=== PATIENT | male | born 1955 ===

== ENCOUNTER → 2019-02-07 | Outpatient (CLI) | payer BC ==
[~2019-02-07] MED LIST: ALLERGY RELIE15.8 ML NS; Flomax0.4 MG PO; Ibuprofen Ib200 MG PO; LORA.5 PO; LOSA50 PO; Omeprazole20 M1 PO; ZOLP10 PO; ZYRTEC10 M2 PO
[2019-02-07 19:41] LABS: BASOPHILS ABSOLUTE AUTO 0.06 K/mm3 (0.00-0.23); BASOPHILS PERCENT AUTO 0 % (0-2); EOSINOPHILS PERCENT AUTO 2 % (0-6); Hematocrit 47.3 % (37.0-53.0); Hemoglobin 15.6 g/dL (13.5-17.5); IMMATURE GRAN ABSOLUTE AUTO 0.05 K/mm3 (0.00-0.10); IMMATURE GRAN PERCENT AUTO 0 % (0-1); LYMPHOCYTES ABSOLUTE AUTO 3.75 K/mm3 (0.84-5.20); LYMPHOCYTES PERCENT AUTO 26 % (21-46); MONOCYTES ABSOLUTE AUTO 1.25 K/mm3 (0.16-1.47); MONOCYTES PERCENT AUTO 9 % (4-13); Mean Corpuscular HGB 30.2 pg (26.0-34.0); Mean Corpuscular Volume 92 fL (80-100); Mean Platelet Volume 11.2 fL (9.1-12.4); NEUTROPHILS ABSOLUTE AUTO 9.12 K/mm3 (1.96-9.15); NEUTROPHILS PERCENT AUTO 63 % (41-73); Platelet Count 223 K/mm3 (150-400); Red Blood Cell Count 5.17 M/mm3 (4.30-5.90); White Blood Cell Count 14.53 K/mm3 (4.00-11.30)
[2019-02-08 10:51] LABS: Blood Urea Nitrogen 18 mg/dL (8-24); Creatinine, Blood 1.08 mg/dL (0.60-1.20); Glomerular Filtration Rate >60 (60-)
== END | disposition home or self-care (01) ==
LOC: LAB SHORT 18:58 → LAB 18:58
PROVIDERS: Emergency Medicine
DX: M54.9 Dorsalgia, unspecified (principal)
CPT/HCPCS: 82565; 84520; 85025

== ENCOUNTER 2021-04-17 12:50 | Day surgery (SDC) | payer MEDICARE ==
[~2021-04-17] VITALS: Ht 188 cm; Wt 118.4 kg
[~2021-04-17 12:50] MED LIST changes: +Acetaminophen650 M1 PO; +ESOM20 PO; +FINA5 PO; +ONDA4ODT MM
[2021-04-17] MEDS ORDERED: MULVITA PO (14:00)
[2021-04-17] MEDS ORDERED: ZINC15 PO (14:00)
[2021-04-17] MEDS ORDERED: MAGCIT300 PO (14:01)
--- NOTE | 2021-04-17 14:32 | NUR ---
Pre-Op teaching done. Pt verbalizes understan History, Chart, Medications and Allergies reviewed before start of procedure.Patient States Post-Procedure ride home has been arranged.
--- NOTE | 2021-04-17 14:34 | NUR ---
2 FAILED ATTEMPTS ON RIGHT FOREARM BY CYNTHIA
--- NOTE | 2021-04-17 14:55 | NUR ---
04/17/21 1455 RACHEAL CARPIO History, Chart, Medications and Allergies reviewed before start of procedure. Patient confirms NPO status and agrees with scheduled surgery. 3-LEAD EKG REVIEWED WITH PHYSICIAN PRIOR TO START OF PROCEDURE. MONITOR INTACT WITH CONTINUOUS PULSE OXIMETRY AND INTERMITTENT BP. PATIENT DETERMINED TO BE ASA APPROPRIATE FOR PROPOFOL SEDATION PRIOR TO START OF PROCEDURE BY DR. BOONE. O2 VIA POM INTACT THROUGHOUT SEDATION/PROCEDURE.
--- NOTE | 2021-04-17 15:47 | NUR ---
Patient up to Ambulate independently. Gait steady. Discharge instructions reviewed with patient. Patient verbalizes understanding. Copy given to patient to take home. History, Chart, Medications and Allergies reviewed before start of procedure.Patient States Post-Procedure ride home has been arranged. Discharged via wheelchair to private car for ride home.
== END 2021-04-17 16:04 | disposition home or self-care (01) ==
LOC: ORSCMMR 12:50 → ORD 14:15 → ORSCMMR 16:04
PROVIDERS: Surgery
PROC: 0DBK8ZX Excision of Ascending Colon, Via Natural or Artificial Opening Endoscopic, Diagnostic (ICD-10-PCS; principal; 2021-04-17 14:15)
PROC: 0DJ08ZZ Inspection of Upper Intestinal Tract, Via Natural or Artificial Opening Endoscopic (ICD-10-PCS; principal; 2021-04-17 14:15)
DX: Z12.11 Encounter for screening for malignant neoplasm of colon (principal); Z86.010 Personal history of colon polyps; R13.10 Dysphagia, unspecified; D12.2 Benign neoplasm of ascending colon; K21.9 Gastro-esophageal reflux disease without esophagitis; E66.9 Obesity, unspecified; Z68.30 Body mass index [BMI] 30.0-30.9, adult; I10 Essential (primary) hypertension; Z79.899 Other long term (current) drug therapy
CPT/HCPCS: 88305; J2704; J7120

== ENCOUNTER 2022-11-18 14:28 | Emergency (ER) | payer MEDICARE, OTHER ==
[~2022-11-18] VITALS: Ht 188 cm; Wt 122.5 kg
[~2022-11-18 14:28] MED LIST changes: +MAGCIT300 PO; +MULVITA PO; +PROM25 PO; +ZINC15 PO
[2022-11-18 15:39] LABS: BASOPHILS ABSOLUTE AUTO 0.05 K/mm3 (0.00-0.23); BASOPHILS PERCENT AUTO 0 % (0-2); EOSINOPHILS PERCENT AUTO 0 % (0-6); Hematocrit 45.2 % (37.0-53.0); Hemoglobin 15.4 g/dL (13.5-17.5); IMMATURE GRAN ABSOLUTE AUTO 0.03 K/mm3 (0.00-0.10); IMMATURE GRAN PERCENT AUTO 0 % (0-1); LYMPHOCYTES PERCENT AUTO 8 % (21-46); MONOCYTES PERCENT AUTO 3 % (4-13); Mean Corpuscular HGB 29.7 pg (26.0-34.0); Mean Corpuscular HGB Conc 34.1 g/dL (31.5-36.5); Mean Corpuscular Volume 87 fL (80-100); Mean Platelet Volume 11.5 fL (9.1-12.4); NEUTROPHILS ABSOLUTE AUTO 11.59 K/mm3 (1.96-9.15); NEUTROPHILS PERCENT AUTO 88 % (41-73); Platelet Count 223 K/mm3 (150-400); RDW Coefficient Variation 12.7 % (11.7-14.2); RDW Standard Deviation 40.5 fL (35.1-46.3); Red Blood Cell Count 5.18 M/mm3 (4.30-5.90); White Blood Cell Count 13.17 K/mm3 (4.00-11.30)
[2022-11-18 15:50] LABS: Albumin, Blood 4.1 g/dL (3.4-5.0); Albumin/Globulin Ratio 1.2 (0.8-1.8); Bilirubin, Total 0.5 mg/dL (0.1-1.0); Bun/Creatinine Ratio 25.3 (12.0-20.0); Calcium, Blood 9.2 mg/dL (8.5-10.1); Creatinine, Blood 0.83 mg/dL (0.60-1.20); Globulin, Blood 3.4 g/dL (2.2-4.0); Potassium, Blood 3.8 mmol/L (3.5-5.5); Total Protein, Blood 7.5 g/dL (6.4-8.2)
[2022-11-18] MEDS ORDERED: ONDA4ODT MM (19:32)
[2022-11-18] MEDS ORDERED: Norco 7.5-3251 EACH PO (19:32)
[2022-11-18 20:00] VITALS: BP 148/74
== END 2022-11-18 20:15 | disposition home or self-care (01) ==
LOC: ER 14:28
PROVIDERS: Physician Assistant
DX: R10.13 Epigastric pain (principal); Z79.899 Other long term (current) drug therapy; I10 Essential (primary) hypertension
CPT/HCPCS: 74177; 76705; 80053; 83690; 85025; 96374-59; 96375; 99284-25; A9270; J0780; J3010; J7030; Q9967

== ENCOUNTER → 2023-08-03 | Outpatient (CLI) | payer MEDICARE, OTHER ==
[~2023-08-03] MED LIST changes: +IBUP200 PO; +Norco 7.5-3251 EACH PO
[2023-08-03 19:12] LABS: Adenovirus F 40/41 Not Detected (NOT DETECT); Astrovirus Not Detected (NOT DETECT); Campylobacter Sp Not Detected (NOT DETECT); Cryptosporidium Not Detected (NOT DETECT); Cyclospora Cayetanensis Not Detected (NOT DETECT); E. Coli O157 Not Detected (NOT DETECT); Entamoeba Histolytica Not Detected (NOT DETECT); Enteroaggregative E. coli-EAEC Not Detected (NOT DETECT); Enteropathogenic E. coli-EPEC Not Detected (NOT DETECT); Enterotoxigenic E. coli-ETEC Not Detected (NOT DETECT); Giardia Lamblia Not Detected (NOT DETECT); Norovirus GI/GII Not Detected (NOT DETECT); Plesiomonas Shigelloides Not Detected (NOT DETECT); Rotavirus A Not Detected (NOT DETECT); Salmonella Sp Not Detected (NOT DETECT); Sapovirus Not Detected (NOT DETECT); Shiga Toxin-prod E. coli-STEC Not Detected (NOT DETECT); Shigella/Enteroin E. coli-EIEC Not Detected (NOT DETECT); Vibrio Cholerae Not Detected (NOT DETECT); Vibrio Sp Not Detected (NOT DETECT); Yersinia Enterocolitica Not Detected (NOT DETECT)
== END | disposition home or self-care (01) ==
LOC: LAB SHORT 14:28 → LAB 14:28
PROVIDERS: Surgery
DX: K58.8 Other irritable bowel syndrome (principal); R19.7 Diarrhea, unspecified
CPT/HCPCS: 87507

== ENCOUNTER → 2024-10-02 | Outpatient (CLI) | payer MEDICARE | LOC: LAB 13:03 → LAB SHORT 13:03 | DX: L72.3 Sebaceous cyst (principal) | CPT/HCPCS: 87070; 87075; 87205 ==